=== PATIENT | female | born 1995 | race Two or more races ===

== ENCOUNTER → 2019-10-26 | Emergency (ER) | payer OTHER ==
[~2019-10-26] VITALS: Ht 154.9 cm; Wt 46.7 kg
[~2019-10-26] MED LIST: EPINEPHrine HCL 1 MG/1 ML AMP IM ONE; diphenhdrAMINE HCL 25 MG CAP PO ONE; methylPREDNISolone SOD SUCC 125 MG/2 ML VL IM ONE
[2019-10-26 12:33] VITALS: BP 112/81
== END | disposition home or self-care (01) ==
LOC: ER 11:47
DX: L50.0 Allergic urticaria (principal); R42 Dizziness and giddiness; Z88.2 Allergy status to sulfonamides
CPT/HCPCS: 96372; 99284; J0171; J2930

== ENCOUNTER → 2022-02-12 | Outpatient (CLI) | payer BC, OTHER ==
[2022-02-12 11:14] LABS: Basophils # (auto) 0 10 ^3/uL (0-0.2); Basophils % (auto) 1.1 % (0.0-2.0); Eosinophils # (auto) 0.1 10 ^3/uL (0-0.8); Eosinophils % (auto) 1.8 % (0.0-7.0); Hematocrit 43.2 % (36.0-46.0); Hemoglobin 14.5 g/dL (12.2-16.2); Lymphocytes # (auto) 1.5 10 ^3/uL (0.4-5.4); Lymphocytes % (auto) 46.5 % (10.0-50.0); Mean Corpuscular Hemoglobin 31.9 pg (28.0-32.0); Mean Corpuscular Hgb Conc. 33.4 g/dL (32.0-36.0); Mean Corpuscular Volume 95.4 fL (80.0-100.0); Monocytes # (auto) 0.4 10 ^3/uL (0-1.3); Monocytes % (auto) 11.5 % (0.0-12.0); Neutrophils # (auto) 1.3 10 ^3/uL (1.6-8.6); Neutrophils % (auto) 39.1 % (37.0-80.0); Nucleated Red Blood Cells % 0.1 %; Red Blood Cells 4.53 10^6/uL (4.0-5.20); Red Cell Distribution Width 13.2 % (11.8-14.3); White Blood Cell 3.2 10^3/uL (4.4-10.8)
[2022-02-12 11:28] LABS: Urine Bacteria FEW /hpf (None Seen); Urine Blood Negative /uL (Negative); Urine Mucus FEW (None Seen); Urine Specific Gravity 1.014 (1.001-1.035); Urine WBC 5 /hpf (0 - 5)
[2022-02-12 11:36] LABS: Albumin 4.2 g/dL (3.4-5.0); Calcium 9.5 mg/dL (8.5-10.1); Potassium 4.4 mmol/L (3.5-5.1)
[2022-02-12 11:43] LABS: BUN/Creatinine Ratio 16.4; Bilirubin, Total 1.2 mg/dL (0.2-1.0)
== END | disposition home or self-care (01) ==
LOC: LAB 10:41
PROVIDERS: ATTEND Student in an Organized Health Care Education/Training Program
DX: R73.9 Hyperglycemia, unspecified (principal); R03.0 Elevated blood-pressure reading, without diagnosis of hypertension; T78.40XA Allergy, unspecified, initial encounter; X58.XXXA Exposure to other specified factors, initial encounter
CPT/HCPCS: 36415; 80053; 80061; 81001; 82785; 83036; 84443; 85025

== ENCOUNTER → 2024-07-06 | Outpatient (CLI) | payer OTHER ==
[~2024-07-06] MED LIST changes: +ACE650RS PR; -EPINEPHrine HCL 1 MG/1 ML AMP IM ONE; -diphenhdrAMINE HCL 25 MG CAP PO ONE; -methylPREDNISolone SOD SUCC 125 MG/2 ML VL IM ONE
[2024-07-06 10:40] LABS: Basophils # (auto) 0 10 ^3/uL (0-0.2); Basophils % (auto) 0.9 % (0.0-2.0); Eosinophils # (auto) 0.2 10 ^3/uL (0-0.8); Hematocrit 40.9 % (36.0-46.0); Lymphocytes # (auto) 1.4 10 ^3/uL (0.4-5.4); Lymphocytes % (auto) 31.8 % (10.0-50.0); Mean Corpuscular Hemoglobin 32.5 pg (28.0-32.0); Mean Corpuscular Hgb Conc. 34.3 g/dL (32.0-36.0); Mean Corpuscular Volume 94.8 fL (80.0-100.0); Monocytes # (auto) 0.3 10 ^3/uL (0-1.3); Monocytes % (auto) 7.7 % (0.0-12.0); Neutrophils # (auto) 2.5 10 ^3/uL (1.6-8.6); Neutrophils % (auto) 55.6 % (37.0-80.0); Platelet Count (auto) 215 10^3/uL (140-450); Red Blood Cells 4.31 10^6/uL (4.0-5.20); Red Cell Distribution Width 13.3 % (11.8-14.3); White Blood Cell 4.5 10^3/uL (4.4-10.8)
[2024-07-06 11:01] LABS: Alanine Aminotransferase 19 U/L (7-40); Anion Gap 9 (5-15); Aspartate Aminotransferase 13 U/L (13-40); BUN/Creatinine Ratio 8.6 (10.0-20.0); Bilirubin, Total 1.1 mg/dL (0.2-1.0); Calcium 10.2 mg/dL (8.7-10.4); Carbon Dioxide 25 mmol/L (20-31); Chloride 105 mmol/L (98-107); Glucose 95 mg/dL (74-106); Sodium 139 mmol/L (136-145); Total Protein 7.5 g/dL (5.7-8.2)
[2024-07-06 11:06] LABS: Albumin 5.1 g/dL (3.2-4.8); Alkaline Phosphatase 44 U/L (46-116); Blood Urea Nitrogen 6 mg/dL (9-23)
== END | disposition home or self-care (01) ==
LOC: LAB 09:58
PROVIDERS: ATTEND Internal Medicine Gastroenterology
DX: R19.4 Change in bowel habit (principal); R19.7 Diarrhea, unspecified
CPT/HCPCS: 36415; 80053; 85025; 86003

== ENCOUNTER 2024-10-04 11:56 | Outpatient (CLI) | payer OTHER ==
[2024-10-04 12:37] LABS: Hematocrit 38.7 % (36.0-46.0); Hemoglobin 13.1 g/dL (12.2-16.2); Mean Corpuscular Hemoglobin 32.0 pg (28.0-32.0); Mean Corpuscular Volume 94.7 fL (80.0-100.0); Nucleated Red Blood Cells % 0.2 %
[2024-10-04 12:51] LABS: Alkaline Phosphatase 78 U/L (46-116); Anion Gap 9 (5-15); BUN/Creatinine Ratio 11.5 (10.0-20.0); Calcium 10.1 mg/dL (8.7-10.4); Carbon Dioxide 26 mmol/L (20-31); Chloride 105 mmol/L (98-107); Glucose 88 mg/dL (74-106); Potassium 4.0 mmol/L (3.5-5.1); Sodium 140 mmol/L (136-145); Total Protein 6.6 g/dL (5.7-8.2); Triglycerides 62 mg/dL (< 150)
[2024-10-04 12:52] LABS: Albumin 4.7 g/dL (3.2-4.8); Bilirubin, Total 0.5 mg/dL (0.2-1.0); Cholesterol 140 mg/dL (< 200); HDL Cholesterol 56 mg/dL (40-59)
[2024-10-04 12:53] LABS: Alanine Aminotransferase 43 U/L (7-40); Blood Urea Nitrogen 7 mg/dL (9-23)
== END 2024-10-04 17:00 | disposition home or self-care (01) ==
LOC: LAB 11:56
PROVIDERS: ATTEND Student in an Organized Health Care Education/Training Program
DX: E78.5 Hyperlipidemia, unspecified (principal); E55.9 Vitamin D deficiency, unspecified; R03.0 Elevated blood-pressure reading, without diagnosis of hypertension; R73.9 Hyperglycemia, unspecified
CPT/HCPCS: 36415; 80053; 80061; 82306; 83036; 84443; 85025